=== PATIENT | female | born 1980 | race Caucasian/White ===

== ENCOUNTER 2024-12-01 09:04 | Outpatient (CLI) | payer BC | END 2024-12-01 09:05 | disposition home or self-care (01) | LOC: CSHLAB 09:04 | PROVIDERS: ATTEND Obstetrics & Gynecology | DX: Z01.812 Encounter for preprocedural laboratory examination (principal); K80.20 Calculus of gallbladder without cholecystitis without obstruction | CPT/HCPCS: 84703; 85027; 86850; 86900; 86901 ==

== ENCOUNTER 2024-12-03 06:05 | Day surgery (SDC) | payer BC ==
[2024-12-01 09:42] VITALS: BMI 28.3
[2024-12-01 10:04] LABS: Hematocrit 35.3 % (34.9-44.5); Hemoglobin 11.2 g/dL (12.0-15.5); Mean Corpuscular Hemoglobin 26.7 pg (27.0-33.0); Mean Corpuscular Volume 84.0 fL (81.6-98.3); Platelet Count 285 10x3/uL (150-450); Red Blood Cell (RBC) Count 4.20 10x6/uL (3.90-5.03); White Blood Cell (WBC) Count 5.35 10x3/uL (3.5-10.5)
[2024-12-01 10:24] LABS: BHCG - Serum Negative (NEGATIVE); Pregs Control Background? CLEAR/WHITE (CLR/WHITE); Pregs Control Bar Appear? YES (CONTROL BAR)
[2024-12-03] MEDS ORDERED: Gabapentin 300 MG CAP ONE (06:33)
[2024-12-03] MEDS ORDERED: metroNIDAZOLE 500 MG (100 mL) BAG ONE (06:33)
[2024-12-03] MEDS ORDERED: Famotidine/PF 20 mg/2ml Vial ONE (06:33)
[2024-12-03] MEDS ORDERED: Bupivacaine HCl 0.5%/Epinephrine 1:200,000/PF 30 ml Vial ONE ×2 (06:51→10:23)
[2024-12-03] MEDS ORDERED: PROPOFOL 40 ML ONE (07:24)
[2024-12-03] MEDS ORDERED: Lidocaine 1% PF 5 ML VIAL ONE (07:26)
[2024-12-03] MEDS ORDERED: SUGAMMADEX SODIUM 200 MG/2 ML VIAL ONE (07:26)
[2024-12-03] MEDS ORDERED: Ondansetron PF 4 MG/2 ML Vial ONE ×2 (07:26→09:50)
[2024-12-03] MEDS ORDERED: Rocuronium Bromide 10 MG/ML (10ML VIAL) ONE (07:26)
[2024-12-03] MEDS ORDERED: CEFAZOLIN 2 GM VIAL ONE (07:39)
[2024-12-03] MEDS ORDERED: PHENYLEPHRINE-NS 100 MCG/ML 10 ML SYRINGE ONE ×3 (08:15→10:23)
[2024-12-03] MEDS ORDERED: EPINEPHrine 1 MG/10 ML Abboject SYRINGE ONE (08:46)
[2024-12-03] MEDS ORDERED: Metoprolol Tartrate 5 MG (5 mL) VIAL ONE (08:54)
[2024-12-03] MEDS ORDERED: HYDROcodone/Acetaminophen 5/325 mg Tablet ONE (11:47)
[2024-12-03] MEDS ORDERED: Ondansetron PF 4 MG/2 ML Vial IVP PRN (14:28)
[2024-12-03] MEDS ORDERED: Ibuprofen 800 MG TAB PO SCH (22:00)
== END 2024-12-03 14:55 | disposition home or self-care (01) ==
LOC: CSHSDC 06:05
PROVIDERS: ATTEND Obstetrics & Gynecology
PROC: 0UT74ZZ Resection of Bilateral Fallopian Tubes, Percutaneous Endoscopic Approach (ICD-10-PCS; principal; 2024-12-03)
PROC: 0FT44ZZ Resection of Gallbladder, Percutaneous Endoscopic Approach (ICD-10-PCS; principal; 2024-12-03)
PROC: 0UT94ZZ Resection of Uterus, Percutaneous Endoscopic Approach (ICD-10-PCS; principal; 2024-12-03)
DX: N80.03 Adenomyosis of the uterus (principal); K80.10 Calculus of gallbladder with chronic cholecystitis without obstruction; Z87.59 Personal history of other complications of pregnancy, childbirth and the puerperium; Z87.891 Personal history of nicotine dependence; Z98.51 Tubal ligation status; Z91.041 Radiographic dye allergy status; Z88.2 Allergy status to sulfonamides
CPT/HCPCS: 84703; 85027; 86850; 86900; 86901; 88304; 88307; C1889; C9250-JZ; J0165; J1100; J1308; J2250; J2405; J2704; J3010; S2900